=== PATIENT | female | born 1970 | race Caucasian/White ===

== ENCOUNTER → 2016-10-21 | Outpatient (CLI) | payer OTHER ==
--- OUTSIDE RECORDS SUMMARY | 2016-10-21 08:50 | XMS REPORT | Continuity of Care Document ---
Author Author [facility] Organization [facility] Address Unknown Phone Unavailable Allergies Active Description Code Type Severity Reaction Onset Reported/Identified Relationship to Patient Clinical Status Yes penicillin G [id number] Drug Allergy Unknown N/A 12/04/2005 Yes prochlorperazine [id number] Drug Allergy Unknown N/A 12/04/2005 Medications Problems Date Dx Coded Attending Type Code Diagnosis Diagnosed By 08/07/2015 SAM TALBOT Ot Z12.31 Procedures Results Encounters ACCT No. Visit Date/Time Discharge Status Pt. Type Provider Facility Loc./Unit Complaint [id number] 05/10/2014 11:41:00 2013 23:59:59 CLS Outpatient [id number] 07/26/2015 14:42:00 ACT Outpatient SAM TALBOT [facility] RAD
--- NOTE | 2016-10-22 12:14 | Diagnostic Imaging Report ---
INDICATION: Digital mammogram bilateral screening The current study was also evaluated with a Computer Aided Detection (CAD) system. This study was compared to prior exams of 07/26/15, 05/10/14 and 07/15/12. At this time there are no current complaints. The current study was also evaluated with a Computer Aided Detection (CAD) system. FINDINGS: There are scattered fibroglandular densities in both breasts which could obscure a lesion. Overall, there does not appear to have been any significant change when compared to the prior exam. No primary or secondary sign of malignancy is noted. IMPRESSION: There is no radiographic evidence for malignancy. ACR BI-RADS Category 1: Negative. Result letter will be mailed to the patient. Note: At least 10% of breast cancer is not imaged by mammography. Dictated by: Dictated on workstation # [id number]
== END ==
LOC: RAD 08:46
PROVIDERS: ATTEND Internal Medicine
DX: Z12.31 Encounter for screening mammogram for malignant neoplasm of breast (principal)
CPT/HCPCS: 77067

== ENCOUNTER → 2018-02-24 | Outpatient (CLI) | payer OTHER ==
--- NOTE | 2018-02-24 19:55 | Diagnostic Imaging Report ---
INDICATION: Routine screening. Comparison is made with prior study from 10/21/2016 and 07/26/2015. 2-D and 3-D bilateral screening mammography was performed with CAD. The current study was also evaluated with a Computer Aided Detection (CAD) system. FINDINGS: Scattered fibroglandular densities are identified bilaterally. Benign-appearing nodular densities in the upper outer left breast appear stable and most consistent with intramammary lymph nodes. No spiculated mass or malignant-appearing microcalcifications are seen. The axillae are unremarkable. IMPRESSION: No mammographic features suspicious for malignancy are identified. ACR BI-RADS Category 2: Benign findings. Result letter will be mailed to the patient. Note: At least 10% of breast cancer is not imaged by mammography. Dictated by: Dictated on workstation # [id number]
== END ==
LOC: RAD 10:10
PROVIDERS: ATTEND Internal Medicine
DX: Z12.31 Encounter for screening mammogram for malignant neoplasm of breast (principal)
CPT/HCPCS: 77067

== ENCOUNTER 2018-09-07 16:56 | Emergency (ER) | payer OTHER ==
[~2018-09-07] VITALS: Ht 160 cm; Wt 81.6 kg
[2018-09-07] MEDS ORDERED: NS IV 1000 ML 1,000 ML IV STA (17:15)
[2018-09-07] MEDS ORDERED: fentaNYL INJECTION 100 MCG/2 ML AMP IVP STA (17:15)
[2018-09-07] MEDS ORDERED: ONDANSETRON 4 MG/2 ML (SDV) Z0FRAN IVP ONE (17:15)
--- NOTE | 2018-09-07 17:24 | ED Abdominal Pain ---
General Stated Complaint: ABD PAIN;FEVER Source of Information: Patient Exam Limitations: No Limitations (DEVANG QUEEN MD) History of Present Illness Date Seen by Provider: Sep 07, 2018 Time Seen by Provider: 17:02 Initial Comments Here with report of upper abdominal pain for the last 10 or 11 days. This is associated with fever and diarrhea. She was sent over to the hospital from her doctor's office for CT scan. Had labs drawn earlier today at outside facility. Unable to get CT scan because her doctor did not get preapproval apparently. Her pain is worsening so she checked into the emergency department. Patient reports that she did have evaluation today and there is concern about lymph nodes in her belly on exam at outside provider's office. This accommodation with the fever created concerned and needed for CT scan. Patient has had diarrhea turned this time but no blood in her stool. Pain is a little better with Bentyl. Does have nausea but no vomiting. Denies upper respiratory symptoms. Drinking okay but a little less. States overall she does not feel well. Timing/Duration: 1 Week, Getting Worse Severity/Quality: Moderate, Severe, Aching, Cramping Location: RUQ Radiation: Back, Epigastric Activities at Onset: None Modifying Factors: Worsens With Eating, Worsens With Movement; Improves With Resting Associated Symptoms: Back Pain; No Chest Pain; Fever/Chills, Nausea/Vomiting; No Shortness of Air, No Weakness (DEVANG QUEEN MD) Allergies and Home Medications Allergies Coded Allergies: penicillin G (Verified Allergy, Unknown, 12/04/05) prochlorperazine (Verified Allergy, Unknown, 12/04/05) Patient Home Medication List Home Medication List Reviewed: Yes (DEVANG QUEEN MD) Review of Systems Review of Systems Constitutional: see HPI; No chills, No fever EENTM: No Symptoms Reported Respiratory: Denies Cough, Denies Shortness of Air Cardiovascular: Denies Chest Pain; Lightheadedness, Palpitations Gastrointestinal: Abdominal Pain, Diarrhea, Nausea; Denies Vomiting Genitourinary: No Symptoms Reported Musculoskeletal: no symptoms reported Skin: no symptoms reported Psychiatric/Neurological: No Symptoms Reported (DEVANG QUEEN MD) All Other Systems Reviewed Negative Unless Noted: Yes (DEVANG QUEEN MD) Past Jbrphqr-Rjqzdv-Cmslin Hx Past Med/Social Hx: Reviewed Nursing Past Med/Soc Hx (DEVANG QUEEN MD) Patient Social History Alcohol Use: Occasionally Uses Recreational Drug Use: No Smoking Status: Never a Smoker Recent Foreign Travel: No Contact w/Someone Who Travel: No (DEVANG QUEEN MD) Past Medical History Surgeries: Yes Abdominal (gastric sleeve), Gallbladder, Hysterectomy Respiratory: No Cardiac: No Neurological: No Reproductive Disorders: Yes Genitourinary: Yes Kidney Stones Gastrointestinal: Yes Gastroesophageal Reflux Musculoskeletal: No Endocrine: No HEENT: No Cancer: No Psychosocial: Yes Sleep Difficulties (DEVANG QUEEN MD) Family Medical History Reviewed Nursing Family Hx (DEVANG QUEEN MD) No Pertinent Family Hx (DEVANG QUEEN MD) Physical Exam Vital Signs Vital Signs - First Documented 09/07/18 17:01 Temp 96.6 Pulse 76 Resp 18 B/P (MAP) 117/68 (84) Pulse Ox 99 O2 Delivery Room Air (LAZ SHIN APRN) Vital Signs Capillary Refill : (DEVANG QUEEN MD) Height/Weight/BMI Height: '" Weight: lbs. oz. kg; BMI Method: General Appearance: WD/WN, no apparent distress HEENT: PERRL/EOMI, pharynx normal Neck: full range of motion, supple Respiratory: lungs clear, normal breath sounds Cardiovascular: regular rate, rhythm, no murmur Peripheral Pulses: 2+ Dorsalis Pedis (R), 2+ Left Dors-Pedis (L), 2+ Radial Pulses (R), 2+ Radial Pulses (L) Gastrointestinal: non tender, soft Extremities: non-tender, normal inspection Back: normal inspection, no CVA tenderness, no vertebral tenderness Neurologic/Psychiatric: alert, oriented x 3 Skin: normal color, warm/dry (DEVANG QUEEN MD) Progress/Results/Core Measures Results/Orders Lab Results Laboratory Tests Test 09/07/18 17:19 Range/Units White Blood Count 9.2 4.3-11.0 10^3/uL Red Blood Count 4.87 4.35-5.85 10^6/uL Hemoglobin 14.7 11.5-16.0 G/DL Hematocrit 43 35-52 % Mean Corpuscular Volume 89 80-99 FL Mean Corpuscular Hemoglobin 30 25-34 PG Mean Corpuscular Hemoglobin Concent 34 32-36 G/DL Red Cell Distribution Width 13.5 10.0-14.5 % Platelet Count 306 130-400 10^3/uL Mean Platelet Volume 9.6 7.4-10.4 FL Neutrophils (%) (Auto) 53 42-75 % Lymphocytes (%) (Auto) 28 12-44 % Monocytes (%) (Auto) 8 0-12 % Eosinophils (%) (Auto) 10 0-10 % Basophils (%) (Auto) 1 0-10 % Neutrophils # (Auto) 4.9 1.8-7.8 X 10^3 Lymphocytes # (Auto) 2.6 1.0-4.0 X 10^3 Monocytes # (Auto) 0.7 0.0-1.0 X 10^3 Eosinophils # (Auto) 0.9 H 0.0-0.3 10^3/uL Basophils # (Auto) 0.1 0.0-0.1 10^3/uL Sodium Level 138 135-145 MMOL/L Potassium Level 3.9 3.6-5.0 MMOL/L Chloride Level 104 98-107 MMOL/L Carbon Dioxide Level 25 21-32 MMOL/L Anion Gap 9 5-14 MMOL/L Blood Urea Nitrogen 7 7-18 MG/DL Creatinine 0.72 0.60-1.30 MG/DL Estimat Glomerular Filtration Rate > 60 BUN/Creatinine Ratio 10 Glucose Level 86 70-105 MG/DL Calcium Level 9.1 8.5-10.1 MG/DL Corrected Calcium 8.9 8.5-10.1 MG/DL Total Bilirubin 1.2 H 0.1-1.0 MG/DL Aspartate Amino Transf (AST/SGOT) 23 5-34 U/L Alanine Aminotransferase (ALT/SGPT) 19 0-55 U/L Alkaline Phosphatase 58 40-136 U/L C-Reactive Protein High Sensitivity 0.10 0.00-0.50 MG/DL Total Protein 7.1 6.4-8.2 GM/DL Albumin 4.2 3.2-4.5 GM/DL Lipase 11 8-78 U/L (LAZ SHIN APRN) My Orders Orders - LAZ SHIN APRN Iohexol Injection (Omnipaque 350 Mg/Ml 1 (09/07/18 17:30) Contrast Received (Contrast Received) (09/07/18 17:30) Ns (Ivpb) (Sodium Chloride 0.9% Ivpb Bag (09/07/18 17:30) Hyoscyamine Sl Tablet (Levsin Sl Tablet) (09/07/18 18:15) (LAZ SHIN APRN) Medications Given in ED Current Medications Medications Dose Ordered Sig/Radha Route Start Time Stop Time Status Last Admin Dose Admin Iohexol 100 ml ONCE ONCE IV 09/07/18 17:30 09/07/18 17:31 DC 09/07/18 18:15 100 ML Ondansetron HCl 4 mg ONCE ONCE IVP 09/07/18 17:15 09/07/18 17:18 DC 09/07/18 17:26 4 MG Sodium Chloride 100 ml ONCE ONCE IV 09/07/18 17:30 09/07/18 17:31 DC 09/07/18 18:15 80 ML (LAZ SHIN APRN) Vital Signs/I&O 09/07/18 17:01 Temp 96.6 Pulse 76 Resp 18 B/P (MAP) 117/68 (84) Pulse Ox 99 O2 Delivery Room Air (LAZ SHIN APRN) Progress Progress Note : Progress Note Seen and evaluated. IV, labs, normal saline 1 L bolus, Zofran 4 mg IV and fentanyl 50 g IV ordered. Anticipate CT abdomen pelvis with contrast. Monitor patient. (DEVANG QUEEN MD) Departure Communication (Admissions) Family Conversation 1850-I discussed the case with Dr. Luna on-call for surgery, states that perhaps the air leak and the common bile duct transiently obstructing flow of bile which could've accounted for the elevated total bilirubin. If the pain persists he would have her scheduled for an ERCP. Plan for discharge Home, nausea control pain control. She states she does not need any pain control medications like hydrocodone at home because a doesn't nausea her. She is overall feeling better at this time. She agrees to call a surgeon tomorrow to make an appointment for follow-up and possible referral to [facility]. NAME: NURYS ZARCO MED REC#: [id number] PT STATUS: REG ER : 1970 PHYSICIAN: DEVANG QUEEN MD ADMIT DATE: 09/07/18/ER Draft Date of Exam:09/07/18 CT ABDOMEN/PELVIS W PROCEDURE: CT abdomen and pelvis with contrast. TECHNIQUE: Multiple contiguous axial images were obtained through the abdomen and pelvis after administration of intravenous contrast. INDICATION: Right upper quadrant abdominal pain with diarrhea. COMPARISON: Comparison is made to study of 07/16/2008. FINDINGS: There is a small hiatal hernia. There has been interval surgery along the greater curvature of the stomach. Gallbladder is surgically absent. There is no significant biliary ductal dilatation. Small amount of gas is seen within the distal common bile duct. No pancreatic, adrenal gland, or splenic abnormality is identified. There may be punctate nonobstructing calculus in the upper pole of the right kidney. Kidneys are otherwise unremarkable. There is no free fluid within the abdomen or pelvis. There is no evidence of appendiceal inflammation. There are cysts within both ovaries reaching a maximum of 2.5 cm on the left. Bladder is unremarkable in appearance. IMPRESSION: Minimal gas at the level of the distal common bile duct could be related to recent stone passage, although there is no evidence of biliary or pancreatic ductal dilatation in patient post cholecystectomy. Bilateral ovarian cysts are present reaching 2.5 cm on the left. Dictated on workstation # [id number] Dict: 09/07/18 1828 Trans: 09/07/18 1834 [id number] Interpreted by: JOSE EMERSON MD Electronically signed by: (LAZ SHIN APRN) Impression Primary Impression: Right upper quadrant abdominal pain Disposition: HOME, SELF-CARE Condition: Stable Departure-Patient Inst. Decision time for Depature: 19:00 (LAZ SHIN APRN) Referrals: BRAIN TALBOT DO (PCP/Family) Primary Care Physician Patient Instructions: Acute Abdomen (Belly Pain), Adult (DC) Add. Discharge Instructions: 1. Call a surgeon of your choosing tomorrow to get a referral to gastroenterology in [place] to discuss ERCP. This would be Dr. Luna's recommendation. Return to ER for any fevers or intolerable pain. DEVANG QUEEN MD Sep 07, 2018 17:24 LAZ SHIN APRN Sep 07, 2018 18:45
[2018-09-07] MEDS ORDERED: IOHEXOL 350 MG/ML 100 ML (OMNIPAQUE 350) VIAL IV ONE (17:30)
[2018-09-07] MEDS ORDERED: RECEIVED CONTRAST (Hold Metformin) IV SCH (17:30)
[2018-09-07] MEDS ORDERED: NS 100 ML (IVPB) BAG IV ONE (17:30)
[2018-09-07 17:37] LABS: BASOPHILS # (AUTO) 0.1 10^3/uL (0.0-0.1); BASOPHILS % (AUTO) 1 % (0-10); EOSINOPHILS # (AUTO) 0.9 10^3/uL (0.0-0.3); EOSINOPHILS % (AUTO) 10 % (0-10); HEMATOCRIT 43 % (35-52); HEMOGLOBIN 14.7 G/DL (11.5-16.0); LYMPHOCYTES # (AUTO) 2.6 X 10^3 (1.0-4.0); LYMPHOCYTES % (AUTO) 28 % (12-44); MEAN CORPUSCULAR HEMOGLOBIN 30 PG (25-34); MEAN CORPUSCULAR HGB CONC 34 G/DL (32-36); MEAN CORPUSCULAR VOLUME 89 FL (80-99); MEAN PLATELET VOLUME 9.6 FL (7.4-10.4); MONOCYTES # (AUTO) 0.7 X 10^3 (0.0-1.0); MONOCYTES % (AUTO) 8 % (0-12); NEUTROPHILS # (AUTO) 4.9 X 10^3 (1.8-7.8); NEUTROPHILS % (AUTO) 53 % (42-75); PLATELET COUNT 306 10^3/uL (130-400); RED BLOOD COUNT 4.87 10^6/uL (4.35-5.85); RED CELL DISTRIBUTION WIDTH 13.5 % (10.0-14.5); WHITE BLOOD COUNT 9.2 10^3/uL (4.3-11.0)
[2018-09-07] MEDS ORDERED: TRAZDONE (17:41)
[2018-09-07] MEDS ORDERED: NEXIUM (17:41)
[2018-09-07 17:54] LABS: ALANINE AMINOTRANSFERASE 19 U/L (0-55); ALBUMIN 4.2 GM/DL (3.2-4.5); ALKALINE PHOSPHATASE 58 U/L (40-136); BILIRUBIN,TOTAL 1.2 MG/DL (0.1-1.0); BUN/CREATININE RATIO 10; CALCIUM 9.1 MG/DL (8.5-10.1); CARBON DIOXIDE 25 MMOL/L (21-32); CHLORIDE 104 MMOL/L (98-107); CREATININE SERUM 0.72 MG/DL (0.60-1.30); GFR ESTIMATED > 60; GLUCOSE 86 MG/DL (70-105); LIPASE 11 U/L (8-78); POTASSIUM 3.9 MMOL/L (3.6-5.0); SODIUM 138 MMOL/L (135-145); TOTAL PROTEIN 7.1 GM/DL (6.4-8.2)
[2018-09-07] MEDS ORDERED: HYOSCYAMINE 0.125 MG (LEVSIN) TAB PO ONE (18:15)
--- NOTE | 2018-09-07 18:35 | Diagnostic Imaging Report ---
PROCEDURE: CT abdomen and pelvis with contrast. TECHNIQUE: Multiple contiguous axial images were obtained through the abdomen and pelvis after administration of intravenous contrast. INDICATION: Right upper quadrant abdominal pain with diarrhea. COMPARISON: Comparison is made to study of 07/16/2008. FINDINGS: There is a small hiatal hernia. There has been interval surgery along the greater curvature of the stomach. Gallbladder is surgically absent. There is no significant biliary ductal dilatation. Small amount of gas is seen within the distal common bile duct. No pancreatic, adrenal gland, or splenic abnormality is identified. There may be punctate nonobstructing calculus in the upper pole of the right kidney. Kidneys are otherwise unremarkable. There is no free fluid within the abdomen or pelvis. There is no evidence of appendiceal inflammation. There are cysts within both ovaries reaching a maximum of 2.5 cm on the left. Bladder is unremarkable in appearance. IMPRESSION: Minimal gas at the level of the distal common bile duct could be related to recent stone passage, although there is no evidence of biliary or pancreatic ductal dilatation in patient post cholecystectomy. Bilateral ovarian cysts are present reaching 2.5 cm on the left. Dictated by: Dictated on workstation # [id number]
[2018-09-07 19:11] VITALS: BP 142/83
== END 2018-09-07 19:11 | disposition home or self-care (01) ==
LOC: EDUNIT# 16:56 → ER 16:57
DX: R10.11 Right upper quadrant pain (principal); K21.9 Gastro-esophageal reflux disease without esophagitis; Z88.0 Allergy status to penicillin; Z88.8 Allergy status to other drugs, medicaments and biological substances; Z90.710 Acquired absence of both cervix and uterus; Z98.84 Bariatric surgery status; Z87.442 Personal history of urinary calculi
CPT/HCPCS: 36415; 74177; 80053; 83690; 85025; 86141